=== PATIENT | female | born 1940 | race Caucasian/White ===

== ENCOUNTER 2019-08-31 16:10 | Emergency (ER) | payer OTHER ==
[2019-08-31] MEDS ORDERED: MORPHINE SULFATE 4 MG/1ML SYG ONE (17:45)
== END 2019-08-31 19:27 | disposition home or self-care (01) ==
LOC: EDH 16:10
DX: S52.125A Nondisplaced fracture of head of left radius, initial encounter for closed fracture (principal); J44.9 Chronic obstructive pulmonary disease, unspecified; I48.91 Unspecified atrial fibrillation; Z95.0 Presence of cardiac pacemaker; W18.09XA Striking against other object with subsequent fall, initial encounter; Y93.89 Activity, other specified; Y92.481 Parking lot as the place of occurrence of the external cause; Y99.8 Other external cause status
CPT/HCPCS: 29105; 73080; 96372; 99283; J2270

== ENCOUNTER 2021-07-03 12:25 | Emergency (ER) | payer OTHER ==
[~2021-07-03] VITALS: Ht 172.7 cm; Wt 129.3 kg
[2021-07-03] MEDS ORDERED: LACTULOSE 20 GM/30 ML UDCUP PO ONE (13:00)
[2021-07-03] MEDS ORDERED: ACETAMINOPHEN 500 MG TABLET PO ONE (13:00)
[2021-07-03] MEDS ORDERED: CYCL10TA16 PO (14:21)
[2021-07-03] MEDS ORDERED: LACT10PA5 PO (14:21)
[2021-07-03] MEDS ORDERED: ACET-2247 PO (14:21)
[2021-07-03 14:51] VITALS: BP 149/83
== END 2021-07-03 15:00 | disposition home or self-care (01) ==
LOC: EDH 12:25
DX: S32.018A Other fracture of first lumbar vertebra, initial encounter for closed fracture (principal); S39.012A Strain of muscle, fascia and tendon of lower back, initial encounter; K59.00 Constipation, unspecified; I50.9 Heart failure, unspecified; G47.30 Sleep apnea, unspecified; J44.9 Chronic obstructive pulmonary disease, unspecified; E66.9 Obesity, unspecified; Z68.41 Body mass index [BMI] 40.0-44.9, adult; Z95.0 Presence of cardiac pacemaker; Z86.73 Personal history of transient ischemic attack (TIA), and cerebral infarction without residual deficits; W01.0XXA Fall on same level from slipping, tripping and stumbling without subsequent striking against object, initial encounter; Y93.89 Activity, other specified; Y92.89 Other specified places as the place of occurrence of the external cause; Y99.8 Other external cause status
CPT/HCPCS: 72131

== ENCOUNTER 2021-10-12 05:50 | Day surgery (SDC) | payer OTHER ==
[2021-10-10 09:53] LABS: EOSINOPHILS % (AUTO) 1.3 % (0.0-8.0); HEMATOCRIT 35.6 % (36-48); LYMPHOCYTES % (AUTO) 12.3 % (21.0-51.0); MEAN CORPUSCULAR HEMOGLOBIN 26.7 pg (27.0-33.0); MEAN CORPUSCULAR HGB CONC 30.1 g/dL (32.0-36.0); MEAN CORPUSCULAR VOLUME 88.8 fL (79-99); MONOCYTES % (AUTO) 8.5 % (3.0-13.0); NEUTROPHILS % (AUTO) 76.3 % (40.0-77.0); PLATELET COUNT (AUTO) 364 K/uL (130-400); RED BLOOD CELL COUNT(AUTO) 4.01 MIL/uL (4.00-5.50); RED CELL DISTRIBUTION WIDTH 16.4 % (11.0-15.5); WHITE BLOOD COUNT (AUTO) 10.5 K/uL (4.8-10.8)
[2021-10-10 10:00] LABS: CREATININE 1.2 mg/dL (0.5-1.5); POTASSIUM 4.3 mmol/L (3.5-5.1)
[2021-10-10 10:04] LABS: INR 2.76 (0.85-1.15); PROTHROMBIN TIME 27.4 SEC (9.6-11.6)
[2021-10-10 10:05] LABS: PARTIAL THROMBOPLASTIN TIME 42.2 SEC (26.3-35.5)
[2021-10-10 10:56] VITALS: BP 124/49
[~2021-10-12] VITALS: Ht 172.7 cm; Wt 120.8 kg
[2021-10-12] VITALS (8 sets, daily range): BP systolic 98–140; BP diastolic 43–62
[~2021-10-12 05:50] MED LIST: 0.9%NACL 1000ML 1,000 ML IV SCH; AMIO200T68 PO; ASPI-1443 PO; BUME2TAB5 PO; CALC-1125 PO; CITA-107 PO; CLON0.5T4 PO; FLUT1DIS3 IH; GLIM4TAB36 PO; LEVO100T12 PO; MAGN400C PO; METF-446 PO; METO-409 PO; OMEP20TA25 PO; SEMA7TAB PO; SIMV10TA97 PO; SPIR25TA6 PO; VERA120T20 PO; WARF-57 PO
[2021-10-12 06:34] LABS: INR 2.32 (0.85-1.15); PROTHROMBIN TIME 23.4 SEC (9.6-11.6)
[2021-10-12 06:35] LABS: PARTIAL THROMBOPLASTIN TIME 37.9 SEC (26.3-35.5)
[2021-10-12] MEDS ORDERED: CEFAZOLIN SODIUM 1 GM VIAL ONE (07:11)
[2021-10-12] MEDS ORDERED: BUPIVACAINE/PF 0.25% 30ML VIAL IJ ONE (07:11)
[2021-10-12] MEDS ORDERED: FENTANYL CITRATE PF 50 MCG/1 ML 2ML VIAL ONE (07:12)
[2021-10-12] MEDS ORDERED: LIDOCAINE HCL 1% MDV 50ML VIAL ONE (07:12)
[2021-10-12] MEDS ORDERED: MIDAZOLAM HCL 1 MG/ML 2ML VIAL ONE (07:12)
== END 2021-10-12 11:15 | disposition home or self-care (01) ==
LOC: DAH 05:50
PROVIDERS: ATTEND Internal Medicine Cardiovascular Disease
DX: Z45.010 Encounter for checking and testing of cardiac pacemaker pulse generator [battery] (principal); I49.5 Sick sinus syndrome; I48.91 Unspecified atrial fibrillation; G47.33 Obstructive sleep apnea (adult) (pediatric); E11.9 Type 2 diabetes mellitus without complications; E78.5 Hyperlipidemia, unspecified; E03.9 Hypothyroidism, unspecified; J44.9 Chronic obstructive pulmonary disease, unspecified; Z98.890 Other specified postprocedural states; Z79.01 Long term (current) use of anticoagulants; Z79.84 Long term (current) use of oral hypoglycemic drugs; Z79.899 Other long term (current) drug therapy; Z99.81 Dependence on supplemental oxygen; Z90.710 Acquired absence of both cervix and uterus; Z83.3 Family history of diabetes mellitus; Z72.89 Other problems related to lifestyle
CPT/HCPCS: 33228; 36415 ×2; 71045; 80048; 82948 ×2; 85025; 85610 ×2; 85730 ×2; 93005; A4215; A4216; A4221; A4222; A4223 ×3; A4606; A4663; C1785; J0690; J2250; J3010; J3490 ×2; J7030; 99156; 99157